=== PATIENT | male | born 1980 | race Caucasian/White ===

== ENCOUNTER 2020-01-08 02:00 | Emergency (ER) | payer OTHER, SELFPAY ==
[2020-01-08 02:02] VITALS: BP 136/79; PULSE 90; RESP 16; TEMP 36.5; O2SAT 100; BMI 21.1
--- NOTE | 2020-01-08 02:04 | CTR_ITS ---
PROCEDURE INFORMATION: Exam: CT Head Without Contrast Exam date and time: 01/08/2020 2:10 AM Age: 39 years old Clinical indication: Condition or disease; Convulsions or seizures; Unspecified; Additional info: Seizure TECHNIQUE: Imaging protocol: Computed tomography of the head without contrast. Radiation optimization: All CT scans at this facility use at least one of these dose optimization techniques: automated exposure control; mA and/or kV adjustment per patient size (includes targeted exams where dose is matched to clinical indication); or iterative reconstruction. COMPARISON: No relevant prior studies available. RADIATION DOSE METRICS: Total DLP (mGy-cm): 744.99 FINDINGS: Brain: No hemorrhage. No significant white matter disease. No edema. Cerebral ventricles: No ventriculomegaly. Bones/joints: No acute fracture. Paranasal sinuses: Trace chronic paranasal sinus disease. Mastoid air cells: No significant mastoid effusion. Soft tissues: Unremarkable. CT/CT head wo con* [id number] IMPRESSION: No acute intracranial abnormality. Radiation Dose CTDIVOL = (mGy): DLP = 744.99 (mGy-cm)
--- NOTE | 2020-01-08 02:08 | W.ED.SEIZURE ---
HPI - Seizure General: Chief Complaint: Seizure Stated Complaint: SEIZURE Source: patient and EMS Mode of arrival: EMS Limitations: no limitations History of Present Illness: HPI Narrative: 39-year-old male who has a history of seizures but states he has not had 1 in over a year. Patient does not take any meds at this time states he is to take Dilantin. Patient had a witnessed seizure roughly 1 hour ago that lasted 1 to 2 minutes. Patient was in a stroke postictal is now awake alert able answer my questions. He denies any headaches. He denies any worsening improving factors. MD complaint: seizure Associated symptoms: Deny chest pain, chills or fever(s) Review of Systems Const: Denies: fever(s), chills, body aches or change in appetite Eyes: Denies: blurry vision or eye discomfort ENMT: Denies: throat pain or dental pain Card: Denies: chest pain Resp: Denies: dyspnea GI: Denies: abdominal pain, nausea, vomiting or diarrhea : Denies: dysuria Musc: Denies: neck pain or back pain Skin/Breast: Denies: rash Neuro: Reports: seizure-like activity Psych: Denies: depression Francisco J/Lymph: Denies: easy bruising All/Imm: Denies: urticaria Physical Exam Const: COMMON NORMALS: no acute distress, patient oriented x3 and healthy appearing HENMT: COMMON NORMALS: normocephalic and atraumatic HEAD & SCALP: normocephalic and atraumatic Eye: COMMON NORMALS: Equal, round and reactive pupils present and EOMs intact bilaterally PUPIL: Yes Equal, round and reactive pupils present Neck/C-Spine: COMMON NORMALS: full ROM and supple Chest: COMMONS NORMALS: normal inspection of the chest and normal palpation of entire chest wall Resp: COMMON NORMALS: normal respiratory effort, No retractions, No use of accessory muscles and clear to auscultation bilaterally AUSCULTATION: clear to auscultation bilaterally Cardio: COMMON NORMALS: regular rate, regular rhythm and No murmurs present (Cardio) RATE: regular rate RHYTHM: regular rhythm GI: COMMON NORMALS: Normal to inspection, nondistended, normoactive bowel sounds present, Soft to palpation, non-tender and no masses PALPATION: Yes Soft to palpation Extremity: COMMON NORMALS: normal to inspection and full ROM Neuro: COMMON NORMALS: patient oriented x3, moves all extremities and no focal motor deficits Psych: COMMON NORMALS: mental status grossly normal, Normal thought process present and cooperative THOUGHT PROCESS: Normal thought process present Skin: COMMON NORMALS: no rashes or lesions noted and no wounds GENERAL SKIN EXAM: no rashes or lesions noted Course Vital Signs: Vital signs: Vital Signs Temperature 97.7 F 01/08/20 02:02 Pulse Rate 86 01/08/20 02:40 Respiratory Rate 17 01/08/20 02:40 Blood Pressure 104/65 01/08/20 02:40 Pulse Oximetry 98 01/08/20 02:40 MDM - Seizure MDM Narrative: Medical decision making narrative: Patient presents here with seizures. Patient's head CT and her electrolytes here are all normal. Patient given IV Keppra and Ativan here. We will start him on Keppra for home and he is to follow-up with his PCP in 1 to 2 days and return if worsening. He understands and agrees to plan. Lab Data: Labs: Lab Results 01/08/20 Range/Units 02:05 Sodium 138 (136-145) mmol/L Potassium 3.0 L (3.5-5.1) mmol/L Chloride 103 (98-107) mmol/L Carbon Dioxide 22 (22-29) mmol/L Anion Gap 16.0 (5-19) BUN 9 (6-20) mg/dL Creatinine 0.9 (0.7-1.2) mg/dL GFR Calculation 93.0 (90-130) mL/min Glucose 103 (65-115) mg/dL Calculated Osmolal ity 285 (285-295) mOsm/k g Calcium 9.1 (8.5-10.5) mg/dL Imaging Data^: CT Head: Radiologist's impression: [facility] [address] [facility] [address] CT Scan Report Signed Patient: Raúl Pina Unit #: [id number] : 1980 Age/Sex: 39 / M ADM Date: 01/08/20 Loc: ER Room/Bed: Attending Dr: Ordering Provider/Ordering MD: Mick Mares MD Date of Service: 01/08/20 Procedure(s): CT head wo con* [id number] Accession Number(s): [id number] Report Number: [id number] PROCEDURE INFORMATION: Exam: CT Head Without Contrast Exam date and time: 01/08/2020 2:10 AM Age: 39 years old Clinical indication: Condition or disease; Convulsions or seizures; Unspecified; Additional info: Seizure TECHNIQUE: Imaging protocol: Computed tomography of the head without contrast. Radiation optimization: All CT scans at this facility use at least one of these dose optimization techniques: automated exposure control; mA and/or kV adjustment per patient size (includes targeted exams where dose is matched to clinical indication); or iterative reconstruction. COMPARISON: No relevant prior studies available. RADIATION DOSE METRICS: Total DLP (mGy-cm): 744.99 FINDINGS: Brain: No hemorrhage. No significant white matter disease. No edema. Cerebral ventricles: No ventriculomegaly. Bones/joints: No acute fracture. Paranasal sinuses: Trace chronic paranasal sinus disease. Mastoid air cells: No significant mastoid effusion. Soft tissues: Unremarkable. CT/CT head wo con* [id number] IMPRESSION: No acute intracranial abnormality Discharge Plan Discharge Patient Disposition: Home Clinical Impression: Generalized seizure Condition: Stable Prescriptions: New Keppra 500 mg tablet 500 mg PO Q12H Qty: 60 RF: 0 Discharge Orders: Discharge Order (Routine); Ordered 01/08/20 Ordered By: Mick Mares Discharge Diet: Advance as tolerated Discharge Activity: Resume usual activity Patient Instructions: Recurrent Seizures Adult (ED) Coding Level of Care Code ED [employer] Exam Comprehensive
[2020-01-08] MEDS: LORazepam 2 mg/mL INJ 1 mL 1 MG IVP (02:13)
--- NOTE | 2020-01-08 02:33 | PC.NURSE ---
Patient to CT
--- NOTE | 2020-01-08 02:38 | PC.NURSE ---
Patient back from CT
[2020-01-08 02:40] VITALS: BP 104/65; PULSE 86; RESP 17; O2SAT 98
[2020-01-08 02:45] LABS: Blood Urea Nitrogen 9 mg/dL (6-20); Calcium 9.1 mg/dL (8.5-10.5); Carbon Dioxide 22 mmol/L (22-29); Chloride 103 mmol/L (98-107); Glucose 103 mg/dL (65-115); Osmolality Calculated 285 mOsm/kg (285-295); Sodium 138 mmol/L (136-145)
[2020-01-08 03:20] VITALS: BP 119/65; PULSE 82; RESP 18; O2SAT 96
[2020-01-08] MEDS: levETIRAcetam 750 MG in sodium chloride 0.9% (100 ml) 100 ML 430 MG IV (03:23)
[2020-01-08 04:03] VITALS: BP 103/65; PULSE 76; RESP 17; O2SAT 97
== END 2020-01-08 04:03 | disposition home or self-care (01) ==
PROVIDERS: Emergency Provider Emergency Medicine
DX: G40.89 Other seizures (principal)
CPT/HCPCS: 12345; 70450; 80048; 96365; 96366; 96375; 99283; 99284; J1953; J2060